=== PATIENT | male | born 1980 | race Caucasian/White ===

== ENCOUNTER 2016-10-29 23:00 | Emergency (ER) | payer SELFPAY ==
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
[~2016-10-29 23:00] MED LIST: ATARAX PO; FLOMAX0.4 M1 PO; IBUPROFEN800 MG PO; KEFLEX500 M2 PO; LORTAB 5/500 TA1 TA1 PO; NAPROXEN PO; NO MEDICATIONS
== END 2016-10-30 00:49 | disposition home or self-care (01) ==
LOC: SED 23:00
DX: S40.022A Contusion of left upper arm, initial encounter (principal); S40.021A Contusion of right upper arm, initial encounter; S80.12XA Contusion of left lower leg, initial encounter; S80.11XA Contusion of right lower leg, initial encounter; F41.9 Anxiety disorder, unspecified; J44.9 Chronic obstructive pulmonary disease, unspecified; F17.210 Nicotine dependence, cigarettes, uncomplicated; V89.2XXA Person injured in unspecified motor-vehicle accident, traffic, initial encounter; Y92.410 Unspecified street and highway as the place of occurrence of the external cause
CPT/HCPCS: 73060; 73090; 73110; 96372; 99284; J1885